=== PATIENT | female | born 1960 | race Caucasian/White ===

== ENCOUNTER 2019-09-06 05:59 | Inpatient (IN) ==
[2019-08-24 12:09] LABS: Basophils # 0.1 10*3/uL (0.0-0.2); Basophils % 0.6 % (0.0-0.8); Eosinophils # 0.5 10*3/uL (0.0-0.87); Eosinophils % 4.4 % (0.00-10.9); Hematocrit 43.1 VOL% (35.7-47.0); Hemoglobin 13.8 GM/DL (12.0-16.0); Immature Granulocytes % 0.5 %; Immature Granulocytes Absolute 0.05 #; Lymphocytes # 2.9 10*3/uL (1.4-4.0); Lymphocytes % 25.9 % (21.3-54.2); Mean Corpuscular Volume 87.8 FL (87-102); Monocytes % 6.4 % (1.7-12.7); Neutrophils % 62.2 % (38.7-73.9); Platelet Count 300 T/CUMM (130-400); Red Blood Count 4.91 MC/CUMM (3.8-5.5); Red Cell Distribution Width 13.9 % (9.3-17.3)
[2019-08-24 12:36] LABS: Calcium 9.8 MG/DL (8.5-10.1); Osmolality,Calculated 278.7 MOS/KG (273-304)
[~2019-09-06 05:59] MED LIST: LACTATED RINGERS 1,000 ML IV SCH
[2019-09-06] MEDS ORDERED: DEXAMETHASONE 4 MG/1 ML VIAL IV ONE (06:00)
[2019-09-06] MEDS ORDERED: OXYMETAZOLINE 0.05% NASAL SPRAY 15 ML BOTTLE ONE (06:29)
[2019-09-06] MEDS ORDERED: SUGAMMADEX 200 MG/2 ML VIAL IV ONE (08:31)
[2019-09-06] MEDS ORDERED: ONDANSETRON 4 MG/2 ML VIAL ONE ×3 (09:03→14:03)
[2019-09-06] MEDS ORDERED: HYDROmorphone 2 MG/1 ML VIAL ONE (09:03)
[2019-09-06] MEDS ORDERED: ONDANSETRON 4 MG/2 ML VIAL IV PRN ×2 (09:04→11:09)
[2019-09-06] MEDS: HYDROmorphone 2 MG/1 ML VIAL IV PRN ×2 (09:11→09:30)
[2019-09-06] MEDS ORDERED: LIDOCAINE 1% 20 ML VIAL RESP TX ONE (09:24)
[2019-09-06] MEDS ORDERED: METOCLOPRAMIDE 10 MG/2 ML VIAL IV STA (10:29)
[2019-09-06] MEDS ORDERED: ONDANSETRON 4 MG/2 ML VIAL IV STA (11:08)
[2019-09-06] MEDS ORDERED: diphenhydrAMINE 50 MG/1 ML VIAL IV PRN (11:09)
[2019-09-06] MEDS ORDERED: KETOROLAC 30 MG/1 ML VIAL IV PRN (11:09)
[2019-09-06] MEDS ORDERED: NITROGLYCERIN SL 0.4 MG TABLET SL PRN (11:12)
[2019-09-06] MEDS ORDERED: HYDROcod/ACETAMIN 7.5-325 MG/15 ML UDCUP PO PRN (11:15)
[2019-09-06] MEDS ORDERED: LACTATED RINGERS 1,000 ML IV SCH ×2 (11:30→14:30)
[2019-09-06] MEDS ORDERED: LIDOCAINE 2% 5 ML VIAL ONE (14:02)
[2019-09-06] MEDS ORDERED: MIDAZOLAM 2 MG/2 ML VIAL ONE (14:02)
[2019-09-06] MEDS ORDERED: SEVOFLURANE 1 UNIT/15 MINUTE INH ONE (14:02)
[2019-09-06] MEDS ORDERED: SUCCINYLCHOLINE 200 MG/10 ML VIAL ONE (14:03)
[2019-09-06] MEDS ORDERED: ROCURONIUM 100 MG/10 ML VIAL IV ONE (14:03)
[2019-09-06] MEDS ORDERED: ETOMIDATE 40 MG/20 ML VIAL IV ONE (14:03)
[2019-09-06] MEDS ORDERED: LACTATED RINGERS 1,000 ML IV ONE (14:03)
[2019-09-06] MEDS ORDERED: fentaNYL 100 MCG/2 ML VIAL ONE (14:03)
[2019-09-06] MEDS: DEXAMETHASONE 4 MG/1 ML VIAL IV SCH ×2 (14:33→22:10)
[2019-09-06] MEDS: IBUPROFEN 100 MG/5 ML UDCUP PO SCH ×3 (14:57→22:07)
[2019-09-06] MEDS: GABAPENTIN 400 MG CAPSULE PO SCH ×2 (16:35→22:08)
[2019-09-06] MEDS: METHOCARBAMOL 750 MG TABLET PO SCH ×2 (16:35→22:08)
[2019-09-06] MEDS ORDERED: SIMVASTATIN 10 MG TABLET PO SCH (21:00)
[2019-09-06] MEDS: OXYBUTYNIN 5 MG TABLET PO SCH (22:08)
[2019-09-06] MEDS: PROPRANOLOL 40 MG TABLET PO SCH (22:09)
[2019-09-06] MEDS: PANTOPRAZOLE 40 MG TABLET PO SCH (22:09)
[2019-09-07] MEDS: IBUPROFEN 100 MG/5 ML UDCUP PO SCH ×4 (03:11→14:34)
[2019-09-07] MEDS: DEXAMETHASONE 4 MG/1 ML VIAL IV SCH ×2 (05:19→14:34)
[2019-09-07] MEDS ORDERED: hydroCHLOROthiazide 12.5 MG CAPSULE PO SCH (09:00)
[2019-09-07] MEDS ORDERED: FUROSEMIDE 40 MG TABLET PO SCH (09:00)
[2019-09-07] MEDS ORDERED: CHOLECALCIFEROL 1,000 UNIT TABLET PO SCH (09:00)
[2019-09-07] MEDS ORDERED: LISINOPRIL/HCTZ 20-25 MG TABLET PO SCH (09:00)
[2019-09-07] MEDS ORDERED: LORATADINE 10 MG TABLET PO SCH (09:00)
[2019-09-07] MEDS ORDERED: MULTIVITAMIN (CENTRUM) TABLET PO SCH (09:00)
[2019-09-07] MEDS ORDERED: COENZYME Q10 100 MG CAPSULE PO SCH (09:00)
[2019-09-07] MEDS: OXYBUTYNIN 5 MG TABLET PO SCH (09:26)
[2019-09-07] MEDS: PANTOPRAZOLE 40 MG TABLET PO SCH (09:27)
[2019-09-07] MEDS: PROPRANOLOL 40 MG TABLET PO SCH (09:27)
[2019-09-07] MEDS: GABAPENTIN 400 MG CAPSULE PO SCH (09:27)
[2019-09-07] MEDS: METHOCARBAMOL 750 MG TABLET PO SCH (09:27)
[2019-09-07 12:09] VITALS: BP 124/55
== END 2019-09-07 15:00 | disposition home or self-care (01) | DRG 134 ==
LOC: N.OR 05:59 → N.SDSINP 06:00 → N.3E 13:14
PROVIDERS: ADMIT Otolaryngology; ATTEND Otolaryngology